=== PATIENT | male | born 1975 | race Two or more races ===

== ENCOUNTER → 2020-12-20 | Outpatient (CLI) | payer OTHER ==
[~2020-12-20] MED LIST: IOHEXOL 300 MG/ML 100ML BOTTLE IJ ONE
[2020-12-20 09:29] LABS: BUN/Creatinine Ratio 20.7; Calcium 8.7 mg/dL (8.5-10.1); Potassium 4.6 mmol/L (3.5-5.1)
== END | disposition home or self-care (01) ==
LOC: CT 08:43
DX: R59.0 Localized enlarged lymph nodes (principal)
CPT/HCPCS: 36415; 71275; 80048; Q9967